=== PATIENT | female | born 1990 | race Two or more races ===

== ENCOUNTER → 2016-07-25 | Outpatient (CLI) | payer OTHER ==
--- NOTE | 2016-07-25 18:37 | REP ---
BILATERAL KNEE SERIES, COMPLETE: 07/25/2016. Clinical history: Bilateral knee pain. No prior studies. Right knee: Five views were provided. Tiny spurs at the medial tibial spine with the width of the medial and lateral joint spaces and patellofemoral joint on the sunrise view preserved. There is no patellar subluxation or dislocation. No prepatellar swelling. No definite effusion, fracture, or loose body. Impression: 1. Negative right knee series for fracture, joint effusion, loose body or significant degenerative change. Left knee: Five views were provided. The width of the medial and lateral joint spaces and patellofemoral joint on the sunrise view preserved. There is no patellar subluxation or dislocation. No prepatellar swelling. No definite effusion, fracture, loose body. Impression: 1. Negative left knee series for fracture, joint effusion, loose body or significant degenerative change. Signed by Nuno Estrada MD 07/25/2016 08:27 P
== END ==
LOC: M LRY 16:42
PROVIDERS: ATTEND Nurse Practitioner Family
DX: M25.562 Pain in left knee (principal)